=== PATIENT | female | born 1970 | race Hispanic/Latino ===

== ENCOUNTER 2018-08-03 10:43 | Outpatient (CLI) | payer BC | END 2018-08-03 10:44 | disposition home or self-care (01) | LOC: BICMAMMO 10:43 | PROVIDERS: ATTEND Family Medicine | DX: Z12.31 Encounter for screening mammogram for malignant neoplasm of breast (principal) | CPT/HCPCS: 77063; 77067 ==

== ENCOUNTER 2019-04-06 14:18 | Outpatient (CLI) | payer BC ==
--- NOTE | 2019-04-06 14:43 | RAD ---
XR Knee Lt 4 View STANDARD HISTORY: Left knee pain FINDINGS: No fracture or dislocation is identified. Mild degenerative changes are present. No joint effusion is seen.
--- NOTE | 2019-04-06 14:44 | RAD ---
XR Knee Rt 4 View STANDARD HISTORY: Right knee pain FINDINGS: No fracture or dislocation is identified. No joint effusion is seen.
--- NOTE | 2019-04-06 14:45 | RAD ---
XR Chest Pa Lat STANDARD HISTORY: Other nonspecific abnormal finding of lung COMPARISON: 07/09/2016 FINDINGS: The heart size is normal. The lungs are well expanded without focal areas of consolidation, pneumothorax or pleural effusions. Left-sided pacer device remains in place. No acute osseous abnormalities are seen. IMPRESSION: No radiographic evidence of acute cardiopulmonary process.
== END 2019-04-06 14:19 | disposition home or self-care (01) ==
LOC: BICRAD 14:18
PROVIDERS: ATTEND Family Medicine
DX: M25.561 Pain in right knee (principal); R91.8 Other nonspecific abnormal finding of lung field; M17.12 Unilateral primary osteoarthritis, left knee
CPT/HCPCS: 71046

== ENCOUNTER 2020-01-19 13:29 | Outpatient (CLI) | payer BC ==
--- NOTE | 2020-01-19 15:07 | ULT ---
Ultrasound of the pelvis: 01/19/2020 COMPARISON:None available HISTORY:Pelvic pain TECHNIQUE: Multiplanar grayscale sonographic imaging of the pelvis obtained with transabdominal and e ndovaginal. Ovaries are assessed with Doppler interrogation including color flow and spectral analysis. FINDINGS: The uterus measures8.4 x 5.2 x 5.7 cm and demonstrates an endometrial thickness ofapproxima tely 7 mm. Evaluation of the endometrial stripe is limited secondary to technical limitations. 7 mm endometrial thickness is within normal limits for a premenopausal female. The right ovary measures2.4 x 1.5 x 2.4 cm. The left ovary measures2.2 x 0.9 x 2.0 cm. No ovarian/adnexal mass noted on either side. The ovaries demonstrate normal blood flow. Multiple prominent nabothian cysts are noted. The majority of these lesions are simple cysts. Some of them demonstrate internal debris/proteinaceous material. There is a 4.9 x 3.0 x 4.6 cm heterogeneously hypoechoic solid lesion associated with the posterior a spect of the uterine body to the right suggesting a uterine fibroid. There there is a probable subcentimeter calcification along the peripheral margin of the endometrium. No evidence for free fluid in the pelvis. IMPRESSION:Findings suggesting 4.9 cm uterine fibroid. No endometrial thickening. Ovaries are grossly unremarkable..
--- NOTE | 2020-01-19 15:09 | MMO ---
Bilateral MAMMO Bilat Screen [facility]. CLINICAL HISTORY: Patient is 49 years old and is seen for screening. The patient has no family history of breast cancer. The patient has no personal history of cancer. VIEWS: The views performed were: bilateral craniocaudal with tomosynthesis; bilateral mediolateral oblique with tomosynthesis; bilateral exaggerated craniocaudal; and left mediolateral oblique. FILMS COMPARED: The present examination has been compared to prior imaging studies performed at [facility] on 07/11/2016 and 05/06/2018. This study has been interpreted with the assistance of computer-aided detection. MAMMOGRAM FINDINGS: The breasts are heterogeneously dense, which could obscure a lesion on mammography. There are no suspicious masses, suspicious calcifications, or new areas of architectural distortion. IMPRESSION: THERE IS NO MAMMOGRAPHIC EVIDENCE OF MALIGNANCY. A ROUTINE FOLLOW-UP MAMMOGRAM IN 1 YEAR IS RECOMMENDED. THE RESULTS OF THIS EXAM WERE SENT TO THE PATIENT. ACR BI-RADS Category 1 - Negative MAMMOGRAPHY NOTE: 1. A negative mammogram report should not delay a biopsy if a dominant of clinically suspicious mass is present. 2. Approximately 10% to 15% of breast cancers are not detected by mammography. 3. Adenosis and dense breasts may obscure an underlying neoplasm. Reported by: DORA FABIAN MD Electonically Signed: [id number]
--- NOTE | 2020-01-19 15:22 | RAD ---
CHEST 1 VIEW: Date: 01/19/2020 Time: 1403 hours HISTORY: Heart failure, fatigue. Comparison made with exam of 07/09/2016. FINDINGS: The heart size is enlarged, but stable. Left-sided pacemaker device remains in place. The aorta is to rtuous. No lobar consolidation, pneumothoraces, arnel pulmonary edema, or pleural effusions are seen. IMPRESSION: No acute process. POS: [facility]
== END 2020-01-19 13:30 | disposition home or self-care (01) ==
LOC: BICMAMMO 13:29
PROVIDERS: ATTEND Family Medicine
DX: Z12.31 Encounter for screening mammogram for malignant neoplasm of breast (principal); I50.9 Heart failure, unspecified; R53.83 Other fatigue; N92.6 Irregular menstruation, unspecified; R10.2 Pelvic and perineal pain
CPT/HCPCS: 71045; 76856; 77063; 77067

== ENCOUNTER 2021-12-18 10:38 | Inpatient (IN) | payer BC ==
[2021-12-18 11:38] LABS: Bacteria/HPF None Seen HPF (None Seen); Bilirubin Negative (Negative); Blood, Urine Negative (Negative); Clarity Clear (Clear); Glucose, Urine (Dipstick) Normal (Negative); Ketone, Urine Negative (Negative); Leukocyte 250 Leu/uL (Negative); Nitrite Negative (Negative); Protein, Urine (Dipstick) Negative (Neg-Trace); RBC/HPF 0-3 HPF (0-3); Specific Gravity, Urine 1.008 (1.002-1.036); Squamous Epithelial 0-3 HPF (0-3); Urobilinogen Normal mg/dL (Less than 2); pH, Urine 5.5 (5.0-9.0)
[2021-12-18 11:49] LABS: #Eosinphils 0.2 thou/uL (0.0-0.7); #Monocytes 0.4 thou/uL (0.11-0.59); #Neutrophils 2.6 thou/uL (1.40-6.50); %Basophils 0.8 % (0.0-1.0); %Eosinophils 3.2 % (0.0-10.0); %Lymphocytes 38.7 % (21.0-51.0); %Monocytes 7.5 % (0.0-10.0); %Neutrophils 49.7 % (42.0-75.0); Hemoglobin 14.3 g/dL (12.0-16.0); Mean Corpuscular Hemoglobin 30.6 pg (27.0-31.0); Mean Corpuscular Volume 92.7 fL (78.0-98.0); Mean Platelet Volume 8.6 fL (7.4-10.4); Platelet Count 201 thou/uL (130-400); RBC Distribution Width 11.6 % (11.5-14.5); Red Blood Cell (RBC) Count 4.69 mill/uL (4.20-5.40); White Blood Cell (WBC) Count 5.1 thou/uL (4.8-10.8)
[2021-12-18 12:06] LABS: ALT (SGPT) 20 U/L (8-55); AST (SGOT) 18 U/L (5-34); Albumin 4.3 g/dL (3.5-5.0); Alkaline Phosphatase 70 U/L (40-110); Anion Gap 12 mmol/L (10-20); BUN (Urea Nitrogen) 12 mg/dL (9.8-20.1); Bilirubin, Total 0.6 mg/dL (0.2-1.2); Calc. Creatinine Clearance 0 mL/min (70-130); Carbon Dioxide 28 mmol/L (22-29); Chloride 105 mmol/L (98-107); Globulin 2.4 g/dL (2.4-3.5); Glucose 94 mg/dL (70-105); Lipase 32 U/L (8-78); Potassium 4.1 mmol/L (3.5-5.1); Protein, Total 6.7 g/dL (6.0-8.3); Sodium 141 mmol/L (136-145)
[2021-12-18] MEDS ORDERED: Ondansetron PF 4 MG/2 ML Vial ONE (13:33)
[2021-12-18] MEDS ORDERED: Aspirin Chewable 81 MG TAB ONE (15:25)
[2021-12-18] MEDS ORDERED: Bisacodyl 5 MG TAB PO PRN (18:09)
[2021-12-18] MEDS ORDERED: Senokot S 8.6-50 MG TAB PO PRN (18:09)
[2021-12-18] MEDS ORDERED: Acetaminophen 325 MG TAB PO PRN (18:09)
[2021-12-18] MEDS ORDERED: Ondansetron PF 4 MG/2 ML Vial IVP PRN (18:09)
[2021-12-18] MEDS ORDERED: Enoxaparin Sodium 40 MG/0.4 ML SYRINGE SC SCH (18:15)
[2021-12-18 18:42] LABS: Troponin I 0.015 ng/mL (< 0.028)
[2021-12-18 19:03] VITALS: BMI 30.7
[2021-12-18 19:28] LABS: SARS-CoV-2 NAA Rapid Test Not Detected (NotDetected)
[2021-12-18] MEDS ORDERED: Spironolactone 25 MG TAB PO SCH (20:30)
[2021-12-18] MEDS ORDERED: Furosemide 20 MG TAB PO SCH (20:30)
[2021-12-18 20:48] LABS: Troponin I 0.011 ng/mL (< 0.028)
[2021-12-18] MEDS ORDERED: Famotidine/PF 20 mg/2ml Vial SLOW IVP SCH (21:00)
[2021-12-18] MEDS: cefTRIAXone\\ROCEPHIN 1 GM in Sodium Chloride 0.9% 100 ML IVPB SCH ×2 (22:22→22:23)
[2021-12-18] MEDS: Melatonin 3 MG TAB PO PRN (22:22)
[2021-12-18 22:32] LABS: Anion Gap 12 mmol/L (10-20); BUN (Urea Nitrogen) 13 mg/dL (9.8-20.1); Calc. Creatinine Clearance 124 mL/min (70-130); Calcium 9.3 mg/dL (7.8-10.44); Carbon Dioxide 26 mmol/L (22-29); Chloride 105 mmol/L (98-107); Glucose 112 mg/dL (70-105); Magnesium 1.8 mg/dL (1.6-2.6); Phosphorus 3.6 mg/dL (2.3-4.7); Potassium 3.9 mmol/L (3.5-5.1); Sodium 139 mmol/L (136-145)
[2021-12-19 06:21] LABS: #Eosinphils 0.2 thou/uL (0.0-0.7); #Lymphocytes 1.9 thou/uL (1.20-3.40); #Monocytes 0.5 thou/uL (0.11-0.59); #Neutrophils 4.3 thou/uL (1.40-6.50); %Basophils 0.5 % (0.0-1.0); %Eosinophils 3.4 % (0.0-10.0); %Lymphocytes 27.5 % (21.0-51.0); %Monocytes 6.5 % (0.0-10.0); %Neutrophils 62.1 % (42.0-75.0); Hemoglobin 14.5 g/dL (12.0-16.0); Mean Corpuscular HGB CONC 33.7 g/dL (32.0-36.0); Mean Corpuscular Hemoglobin 31.7 pg (27.0-31.0); Mean Corpuscular Volume 93.9 fL (78.0-98.0); Mean Platelet Volume 8.8 fL (7.4-10.4); Platelet Count 191 thou/uL (130-400); RBC Distribution Width 11.6 % (11.5-14.5); Red Blood Cell (RBC) Count 4.58 mill/uL (4.20-5.40); White Blood Cell (WBC) Count 6.9 thou/uL (4.8-10.8)
[2021-12-19 06:29] LABS: ALT (SGPT) 18 U/L (8-55); AST (SGOT) 19 U/L (5-34); Albumin 3.9 g/dL (3.5-5.0); Alkaline Phosphatase 68 U/L (40-110); Anion Gap 13 mmol/L (10-20); BUN (Urea Nitrogen) 12 mg/dL (9.8-20.1); Bilirubin, Total 0.5 mg/dL (0.2-1.2); Calc. Creatinine Clearance 126 mL/min (70-130); Calcium 9.5 mg/dL (7.8-10.44); Carbon Dioxide 24 mmol/L (22-29); Globulin 2.9 g/dL (2.4-3.5); Glucose 87 mg/dL (70-105); Potassium 4.2 mmol/L (3.5-5.1); Protein, Total 6.8 g/dL (6.0-8.3)
[2021-12-19 08:03] LABS: Chloride 104 mmol/L (98-107); Sodium 137 mmol/L (136-145)
[2021-12-19] MEDS ORDERED: Enoxaparin Sodium 40 MG/0.4 ML SYRINGE SC SCH (09:00)
[2021-12-19] MEDS ORDERED: ADENOSINE 60 MG/20 ML VIAL ONE (12:12)
[2021-12-19] MEDS: Spironolactone 25 MG TAB PO SCH (13:25)
[2021-12-19] MEDS: Furosemide 20 MG TAB PO SCH (13:26)
[2021-12-19] MEDS: Aspirin 325 mg Enteric Coated Tablet PO SCH (13:26)
[2021-12-19] MEDS ORDERED: Atorvastatin Calcium 40 MG TAB PO SCH (21:00)
[2021-12-19] MEDS: Sacubitril 49 MG/Valsartan 51 MG TABLET PO SCH (21:17)
[2021-12-19] MEDS: Melatonin 3 MG TAB PO PRN (21:18)
[2021-12-19] MEDS: Atorvastatin Calcium 10 MG TAB PO SCH (21:18)
[2021-12-20] MEDS: Furosemide 20 MG TAB PO SCH (09:17)
[2021-12-20] MEDS: Polyethylene Glycol 3350 17 GM Packet PO SCH (09:33)
[2021-12-20] MEDS: Milk Of Magnesia 30 ML UDCUP PO SCH (09:33)
[2021-12-20] MEDS: Senokot S 8.6-50 MG TAB PO SCH ×2 (09:34→20:02)
[2021-12-20] MEDS: Sacubitril 49 MG/Valsartan 51 MG TABLET PO SCH ×2 (11:21→20:02)
[2021-12-20] MEDS: Spironolactone 25 MG TAB PO SCH (11:21)
[2021-12-20] MEDS: Aspirin 325 mg Enteric Coated Tablet PO SCH (11:21)
[2021-12-20] MEDS: Apixaban 5 MG TAB PO SCH (20:02)
[2021-12-20] MEDS: Atorvastatin Calcium 10 MG TAB PO SCH (20:02)
[2021-12-21 08:40] VITALS: BP 96/59; TEMP 97.6
[2021-12-21] MEDS: Senokot S 8.6-50 MG TAB PO SCH (09:35)
[2021-12-21] MEDS: Apixaban 5 MG TAB PO SCH (09:36)
[2021-12-21] MEDS: Sacubitril 49 MG/Valsartan 51 MG TABLET PO SCH (09:36)
[2021-12-21] MEDS: Milk Of Magnesia 30 ML UDCUP PO SCH (09:36)
[2021-12-21] MEDS: Furosemide 20 MG TAB PO SCH (09:36)
[2021-12-21] MEDS: Aspirin 325 mg Enteric Coated Tablet PO SCH (09:36)
[2021-12-21] MEDS: Polyethylene Glycol 3350 17 GM Packet PO SCH (09:37)
[2021-12-21] MEDS: Spironolactone 25 MG TAB PO SCH (09:38)
== END 2021-12-21 11:30 | disposition home or self-care (01) | DRG 69 ==
LOC: ERS 10:38 → 2NO 17:25 → OBSVTOIN 12-20 10:32
PROVIDERS: ADMIT Internal Medicine; ATTEND Family Medicine
DX: G45.9 Transient cerebral ischemic attack, unspecified (principal); N39.0 Urinary tract infection, site not specified; I50.22 Chronic systolic (congestive) heart failure; I42.0 Dilated cardiomyopathy; Z20.822 Contact with and (suspected) exposure to COVID-19; R20.0 Anesthesia of skin; I11.0 Hypertensive heart disease with heart failure; I25.2 Old myocardial infarction; Z95.810 Presence of automatic (implantable) cardiac defibrillator; Z79.899 Other long term (current) drug therapy; Z79.01 Long term (current) use of anticoagulants
CPT/HCPCS: 36415; 70450; 71045; 72125; 78452; 80053; 81003; 81015; 83690; 83735; 84100; 84484; 85025; 87040; 87086; 93005; 93017; 93306; 93880; 94760; 96372; 96374; A9500; G0378; J0153; J0696; J1650; J2405; J3490; U0002

== ENCOUNTER 2022-08-13 13:38 | Emergency (ER) | payer BC ==
[2022-08-13 15:59] LABS: #Eosinphils 0.1 thou/uL (0.0-0.7); #Lymphocytes 1.9 thou/uL (1.20-3.40); #Monocytes 0.4 thou/uL (0.11-0.59); #Neutrophils 2.5 thou/uL (1.40-6.50); %Eosinophils 2.9 % (0.0-10.0); %Lymphocytes 38.6 % (21.0-51.0); %Monocytes 8.7 % (0.0-10.0); %Neutrophils 49.9 % (42.0-75.0); Hemoglobin 15.7 g/dL (12.0-16.0); Mean Corpuscular HGB CONC 32.8 g/dL (32.0-36.0); Mean Corpuscular Hemoglobin 30.4 pg (27.0-31.0); Mean Corpuscular Volume 92.8 fL (78.0-98.0); Mean Platelet Volume 9.2 fL (7.4-10.4); Platelet Count 209 thou/uL (130-400); RBC Distribution Width 11.5 % (11.5-14.5); Red Blood Cell (RBC) Count 5.15 mill/uL (4.20-5.40)
[2022-08-13 16:22] LABS: ALT (SGPT) 20 U/L (8-55); AST (SGOT) 19 U/L (5-34); Albumin 4.7 g/dL (3.5-5.0); Alkaline Phosphatase 84 U/L (40-110); Anion Gap 13 mmol/L (10-20); BUN (Urea Nitrogen) 14 mg/dL (9.8-20.1); Bilirubin, Total 0.8 mg/dL (0.2-1.2); Calc. Creatinine Clearance 0 mL/min (70-130); Calcium 10.3 mg/dL (7.8-10.44); Carbon Dioxide 27 mmol/L (22-29); Chloride 104 mmol/L (98-107); Estimated GFR 100; Globulin 2.6 g/dL (2.4-3.5); Glucose 88 mg/dL (70-105); Potassium 3.9 mmol/L (3.5-5.1); Protein, Total 7.3 g/dL (6.0-8.3); Sodium 140 mmol/L (136-145)
== END 2022-08-13 20:33 | disposition short-term general hospital (02) ==
LOC: ERS 13:38
DX: I95.9 Hypotension, unspecified (principal); I50.9 Heart failure, unspecified; Z79.01 Long term (current) use of anticoagulants
CPT/HCPCS: 36415; 80053; 83880; 84484; 85025; 93005; 96360; 96361

== ENCOUNTER 2024-09-16 15:59 | Outpatient (CLI) | payer OTHER | END 2024-09-16 16:00 | disposition home or self-care (01) | LOC: BICRAD 15:59 | PROVIDERS: ATTEND Family Medicine | DX: R31.9 Hematuria, unspecified (principal); R10.31 Right lower quadrant pain; N20.9 Urinary calculus, unspecified | CPT/HCPCS: 74018 ==

== ENCOUNTER 2024-09-17 10:55 | Emergency (ER) | payer OTHER ==
[2024-09-17 12:23] LABS: ALT (SGPT) 21 U/L (8-55); AST (SGOT) 22 U/L (5-34); Albumin 4.3 g/dL (3.5-5.0); Alkaline Phosphatase 80 U/L (40-110); Anion Gap 15 mmol/L (10-20); BUN (Urea Nitrogen) 13 mg/dL (9.8-20.1); Bilirubin, Total 0.7 mg/dL (0.2-1.2); Calc. Creatinine Clearance 0 mL/min (70-130); Calcium 9.7 mg/dL (7.8-10.44); Carbon Dioxide 20 mmol/L (22-29); Chloride 107 mmol/L (98-107); Estimated GFR 102; Globulin 2.8 g/dL (2.4-3.5); Glucose 78 mg/dL (70-105); Potassium 3.6 mmol/L (3.5-5.1); Protein, Total 7.1 g/dL (6.0-8.3); Sodium 138 mmol/L (136-145)
[2024-09-17] MEDS ORDERED: fentaNYL 50 mcg/mL 1 mL Vial ONE (12:38)
[2024-09-17 12:59] LABS: Troponin I 0.018 ng/mL (< 0.028)
[2024-09-17] MEDS ORDERED: Acetaminophen 500 MG TAB ONE (13:00)
[2024-09-17 13:52] LABS: #Basophils Less than 0.03 10x3/uL (0.0-0.2); %Basophils 0.4 % (0.0-1.0); %Eosinophils 3.7 % (0.0-10.0); %Lymphocytes 41.9 % (21.0-51.0); %Monocytes 7.2 % (0.0-10.0); %Neutrophils 46.6 % (42.0-75.0); Hematocrit 43.9 % (36.0-47.0); Hemoglobin 14.6 g/dL (12.0-16.0); Mean Corpuscular HGB CONC 33.3 g/dL (32.0-36.0); Mean Corpuscular Hemoglobin 30.5 pg (27.0-31.0); Mean Corpuscular Volume 91.6 fL (78.0-98.0); Platelet Count 197 10x3/uL (130-400); RBC Distribution Width 12.4 % (11.5-14.5); Red Blood Cell (RBC) Count 4.79 mill/uL (4.20-5.40)
[2024-09-17 14:23] LABS: Bilirubin Negative (Negative); Blood, Urine Negative (Negative); CAUTI Indications for Culture Pelvic or flank pain; Clarity Clear (Clear); Glucose, Urine (Dipstick) >=1000 mg/dL (Negative); Ketone, Urine Negative (Negative); Leukocyte 75 Leu/uL (Negative); Nitrite Negative (Negative); Protein, Urine (Dipstick) 10 mg/dL (Neg-Trace); RBC/HPF 0-3 HPF (0-3); Specific Gravity, Urine 1.014 (1.002-1.036); Squamous Epithelial 0-3 HPF (0-3); Urobilinogen Normal mg/dL (Less than 2); pH, Urine 5.5 (5.0-9.0)
[2024-09-17 14:37] LABS: Transitional Epithelial 0-3 HPF (None Seen)
[2024-09-17 14:42] LABS: Bacteria/HPF Rare-Few HPF (None Seen)
[2024-09-17 14:43] LABS: Urine Culture Reflex No No
[2024-09-17] MEDS ORDERED: Iopamidol-370 76% 500 ML MDV (1 ML CHARGE) ONE (14:49)
== END 2024-09-17 15:04 | disposition home or self-care (01) ==
LOC: ERS 10:55
DX: R10.30 Lower abdominal pain, unspecified (principal); I51.7 Cardiomegaly; Z75.8 Other problems related to medical facilities and other health care; Z79.01 Long term (current) use of anticoagulants; Z79.899 Other long term (current) drug therapy
CPT/HCPCS: 36415; 74177; 80053; 81001; 83690; 83880; 84484; 85025; 93005; J3010; Q9967

== ENCOUNTER 2024-09-22 12:34 | Emergency (ER) | payer OTHER ==
[2024-09-22 15:58] LABS: #Basophils 0.03 10x3/uL (0.0-0.2); %Basophils 0.6 % (0.0-1.0); %Eosinophils 2.8 % (0.0-10.0); %Lymphocytes 31.4 % (21.0-51.0); %Monocytes 6.3 % (0.0-10.0); %Neutrophils 58.7 % (42.0-75.0); Hematocrit 44.7 % (36.0-47.0); Hemoglobin 14.9 g/dL (12.0-16.0); Mean Corpuscular HGB CONC 33.3 g/dL (32.0-36.0); Mean Corpuscular Volume 90.1 fL (78.0-98.0); Mean Platelet Volume 11.1 fL (7.4-10.4); Platelet Count 198 10x3/uL (130-400); RBC Distribution Width 12.5 % (11.5-14.5); Red Blood Cell (RBC) Count 4.96 mill/uL (4.20-5.40)
[2024-09-22 16:06] LABS: Bacteria/HPF None Seen HPF (None Seen); Bilirubin Negative (Negative); Blood, Urine Negative (Negative); CAUTI Indications for Culture Pelvic or flank pain; Clarity Clear (Clear); Glucose, Urine (Dipstick) Greater than 1000 mg/dL (Negative); Ketone, Urine 40 mg/dL (Negative); Leukocyte Negative Leu/uL (Negative); Nitrite Negative (Negative); Protein, Urine (Dipstick) Negative (Neg-Trace); RBC/HPF None Seen HPF (0-3); Squamous Epithelial None Seen HPF (0-3); Urobilinogen Normal mg/dL (Less than 2); WBC/HPF 0-3 HPF (0-3)
[2024-09-22 16:09] LABS: Urine Culture Reflex No No
[2024-09-22 16:26] LABS: ALT (SGPT) 21 U/L (8-55); AST (SGOT) 21 U/L (5-34); Albumin 4.2 g/dL (3.5-5.0); Alkaline Phosphatase 76 U/L (40-110); Anion Gap 14 mmol/L (10-20); BUN (Urea Nitrogen) 11 mg/dL (9.8-20.1); Bilirubin, Total 0.8 mg/dL (0.2-1.2); Calc. Creatinine Clearance 0 mL/min (70-130); Calcium 9.8 mg/dL (7.8-10.44); Carbon Dioxide 27 mmol/L (22-29); Chloride 103 mmol/L (98-107); Estimated GFR 94; Globulin 2.7 g/dL (2.4-3.5); Glucose 79 mg/dL (70-105); Potassium 3.9 mmol/L (3.5-5.1); Protein, Total 6.9 g/dL (6.0-8.3); Sodium 140 mmol/L (136-145)
[2024-09-22] MEDS ORDERED: HYDROcodone/Acetaminophen 5/325 mg Tablet ONE (17:26)
== END 2024-09-22 17:32 | disposition home or self-care (01) ==
LOC: ERS 12:34
DX: M46.1 Sacroiliitis, not elsewhere classified (principal); R10.2 Pelvic and perineal pain
CPT/HCPCS: 36415; 76856; 80053; 81001; 85025; 93976

== ENCOUNTER 2024-09-23 13:17 | Emergency (ER) | payer OTHER ==
[2024-09-23 13:58] LABS: #Basophils 0.03 10x3/uL (0.0-0.2); %Basophils 0.6 % (0.0-1.0); %Eosinophils 4.5 % (0.0-10.0); %Lymphocytes 45.8 % (21.0-51.0); %Monocytes 7.4 % (0.0-10.0); %Neutrophils 41.5 % (42.0-75.0); Hemoglobin 15.7 g/dL (12.0-16.0); Mean Corpuscular HGB CONC 33.4 g/dL (32.0-36.0); Mean Corpuscular Hemoglobin 30.5 pg (27.0-31.0); Mean Corpuscular Volume 91.3 fL (78.0-98.0); Mean Platelet Volume 10.7 fL (7.4-10.4); Platelet Count 229 10x3/uL (130-400); RBC Distribution Width 12.3 % (11.5-14.5); Red Blood Cell (RBC) Count 5.15 mill/uL (4.20-5.40)
[2024-09-23 14:18] LABS: ALT (SGPT) 22 U/L (8-55); AST (SGOT) 24 U/L (5-34); Albumin 4.4 g/dL (3.5-5.0); Alkaline Phosphatase 80 U/L (40-110); Anion Gap 11 mmol/L (10-20); BUN (Urea Nitrogen) 10 mg/dL (9.8-20.1); Bilirubin, Total 0.7 mg/dL (0.2-1.2); Calc. Creatinine Clearance 0 mL/min (70-130); Calcium 9.7 mg/dL (7.8-10.44); Carbon Dioxide 27 mmol/L (22-29); Chloride 104 mmol/L (98-107); Estimated GFR 98; Globulin 2.7 g/dL (2.4-3.5); Glucose 96 mg/dL (70-105); Magnesium 2.1 mg/dL (1.6-2.6); Potassium 4.3 mmol/L (3.5-5.1); Protein, Total 7.1 g/dL (6.0-8.3); Sodium 138 mmol/L (136-145)
[2024-09-23 16:55] LABS: Troponin I 0.014 ng/mL (< 0.028)
== END 2024-09-23 19:30 | disposition home or self-care (01) ==
LOC: ERS 13:17
DX: M79.3 Panniculitis, unspecified (principal); R10.31 Right lower quadrant pain; I50.9 Heart failure, unspecified; Z75.8 Other problems related to medical facilities and other health care
CPT/HCPCS: 36415; 71046; 74177; 80053; 83605; 83735; 83880; 84484; 85025; 93005

== ENCOUNTER 2025-06-12 03:43 | Emergency (ER) | payer OTHER ==
[2025-06-12 04:16] LABS: #Basophils 0.05 10x3/uL (0.0-0.2); #Eosinophils 0.30 10x3/uL (0.0-0.7); #Monocytes 0.47 10x3/uL (0.11-0.59); #Neutrophils 2.97 10x3/uL (1.40-6.50); %Basophils 0.7 % (0.0-1.0); %Eosinophils 4.0 % (0.0-10.0); %Lymphocytes 48.9 % (21.0-51.0); %Monocytes 6.3 % (0.0-10.0); %Neutrophils 40.0 % (42.0-75.0); Hematocrit 51.5 % (36.0-47.0); Hemoglobin 17.3 g/dL (12.0-16.0); Mean Corpuscular Hemoglobin 29.8 pg (27.0-31.0); Mean Corpuscular Volume 88.6 fL (78.0-98.0); Platelet Count 224 10x3/uL (130-400); Red Blood Cell (RBC) Count 5.81 mill/uL (4.20-5.40); White Blood Cell (WBC) Count 7.44 10x3/uL (4.8-10.8)
[2025-06-12] MEDS ORDERED: Nitroglycerin 2% Ointment 1 INCH/1 GM Packet ONE (04:29)
[2025-06-12 04:30] LABS: INR-International Normal Ratio 1.1; PTT 32.3 sec (22.9-36.1); Prothrombin Time 14.0 sec (12.0-14.7)
[2025-06-12] MEDS ORDERED: Furosemide 20 MG (2 mL) VIAL ONE (04:30)
[2025-06-12 04:34] LABS: BHCG - Serum Negative (NEGATIVE); Pregs Control Background? CLEAR/WHITE (CLR/WHITE); Pregs Control Bar Appear? YES (CONTROL BAR)
[2025-06-12 04:35] LABS: ALT (SGPT) 23 U/L (Less than 34); AST (SGOT) 25 U/L (11-34); Albumin 4.7 g/dL (3.1-4.5); Alkaline Phosphatase 90 U/L (40-110); Anion Gap 13 mmol/L (10-20); BUN (Urea Nitrogen) 23 mg/dL (9.8-20.1); Bilirubin, Total 0.6 mg/dL (0.3-1.2); Calc. Creatinine Clearance 0 mL/min (70-130); Calcium 9.8 mg/dL (7.8-10.44); Carbon Dioxide 27 mmol/L (22-29); Chloride 103 mmol/L (98-107); Globulin 3.1 g/dL (2.4-3.5); Glucose 97 mg/dL (70-105); Lipase 40 U/L (8-78); Magnesium 2.3 mg/dL (1.6-2.6); Potassium 3.8 mmol/L (3.5-5.1); Sodium 139 mmol/L (136-145)
[2025-06-12 04:37] LABS: Troponin I 0.027 ng/mL (< 0.028)
[2025-06-12 04:41] LABS: D-Dimer Test Less than 0.27 mcg/mL (0.27-0.43)
[2025-06-12 06:44] LABS: Troponin I 0.031 ng/mL (< 0.028)
== END 2025-06-12 08:38 | disposition short-term general hospital (02) ==
LOC: ERS 03:43
DX: I50.9 Heart failure, unspecified (principal); R07.9 Chest pain, unspecified; R06.02 Shortness of breath; Z95.0 Presence of cardiac pacemaker; Z79.899 Other long term (current) drug therapy; Z79.01 Long term (current) use of anticoagulants; Z75.8 Other problems related to medical facilities and other health care
CPT/HCPCS: 36415; 71045; 80053; 83605; 83690; 83735; 83880; 84443; 84484; 84703; 85025; 85379; 85610; 85730; 93005; 96374; J1940

== ENCOUNTER 2025-07-22 12:09 | Emergency (ER) | payer OTHER ==
[2025-07-22] MEDS ORDERED: Aspirin Chewable 81 MG TAB ONE (12:38)
[2025-07-22 12:43] LABS: #Basophils 0.04 10x3/uL (0.0-0.2); #Eosinophils 0.20 10x3/uL (0.0-0.7); #Monocytes 0.47 10x3/uL (0.11-0.59); #Neutrophils 2.81 10x3/uL (1.40-6.50); %Basophils 0.7 % (0.0-1.0); %Eosinophils 3.3 % (0.0-10.0); %Lymphocytes 41.7 % (21.0-51.0); %Monocytes 7.8 % (0.0-10.0); %Neutrophils 46.3 % (42.0-75.0); Hematocrit 41.2 % (36.0-47.0); Hemoglobin 13.8 g/dL (12.0-16.0); Mean Corpuscular Hemoglobin 28.9 pg (27.0-31.0); Mean Corpuscular Volume 86.2 fL (78.0-98.0); Platelet Count 248 10x3/uL (130-400); Red Blood Cell (RBC) Count 4.78 mill/uL (4.20-5.40); White Blood Cell (WBC) Count 6.06 10x3/uL (4.8-10.8)
[2025-07-22 13:07] LABS: INR-International Normal Ratio 1.1; Prothrombin Time 14.5 sec (12.0-14.7)
[2025-07-22 13:08] LABS: PTT 33.5 sec (22.9-36.1)
[2025-07-22] MEDS ORDERED: Boostrix 0.5 ML (Tdap) VIAL (>/=7 yrs of age) ONE (13:09)
[2025-07-22 13:22] LABS: ALT (SGPT) 33 U/L (Less than 34); AST (SGOT) 32 U/L (11-34); Albumin 4.1 g/dL (3.1-4.5); Alkaline Phosphatase 82 U/L (40-110); Anion Gap 14 mmol/L (10-20); BUN (Urea Nitrogen) 16 mg/dL (9.8-20.1); Bilirubin, Total 0.4 mg/dL (0.3-1.2); Calc. Creatinine Clearance 0 mL/min (70-130); Calcium 10.0 mg/dL (7.8-10.44); Carbon Dioxide 24 mmol/L (22-29); Chloride 104 mmol/L (98-107); Globulin 3.0 g/dL (2.4-3.5); Glucose 101 mg/dL (70-105); Lipase 39 U/L (8-78); Potassium 4.0 mmol/L (3.5-5.1); Sodium 138 mmol/L (136-145)
[2025-07-22] MEDS ORDERED: Metoprolol Tartrate 5 MG (5 mL) VIAL ONE (15:25)
[2025-07-22] MEDS ORDERED: Acetaminophen 500 MG TAB ONE (16:14)
== END 2025-07-22 16:21 | disposition short-term general hospital (02) ==
LOC: ERS 12:09
DX: I49.9 Cardiac arrhythmia, unspecified (principal); T82.9XXA Unspecified complication of cardiac and vascular prosthetic device, implant and graft, initial encounter; I47.10 Supraventricular tachycardia, unspecified; I47.20 Ventricular tachycardia, unspecified; I50.9 Heart failure, unspecified; E78.5 Hyperlipidemia, unspecified; Z79.01 Long term (current) use of anticoagulants; Z79.899 Other long term (current) drug therapy
CPT/HCPCS: 71045; 80053; 83690; 83880; 84484; 85025; 85610; 85730; 90715; 93005; 96374